=== PATIENT | female | born 1945 | race Caucasian/White ===

== ENCOUNTER 2017-11-08 10:13 | Inpatient (IN) | payer OTHER ==
[~2017-11-08] VITALS: Ht 167.6 cm; Wt 66.3 kg
[~2017-11-08 10:13] MED LIST: GABA300C10 PO; TRAM50TA2 PO
[2017-11-08 11:11] LABS: Basophils # (auto) 0.1 uL; Basophils % (auto) 1.1 % (0.0-2.0); Eosinophils # (auto) 0.1 uL; Eosinophils % (auto) 0.7 % (0.0-7.0); Hematocrit 43.6 % (36.0-46.0); Hemoglobin 14.6 g/dL (12.2-16.2); Lymphocytes # (auto) 1.8 uL; Lymphocytes % (auto) 13.5 % (10.0-50.0); Mean Corpuscular Hemoglobin 30.4 pg (28.0-32.0); Mean Corpuscular Hgb Conc. 33.5 g/dL (32.0-36.0); Mean Corpuscular Volume 90.9 fL (80.0-100.0); Monocytes # (auto) 0.7 uL; Neutrophils # (auto) 10.9 uL; Neutrophils % (auto) 79.7 % (37.0-80.0); Nucleated Red Blood Cells % 0.1 %; Platelet Count (auto) 298 10^3/uL (140-450); Red Blood Cells 4.79 10^6/uL (4.0-5.20); Red Cell Distribution Width 13.2 % (11.8-14.3); White Blood Cell 13.7 10^3/uL (4.4-10.8)
[2017-11-08] MEDS ORDERED: SODIUM CHLORIDE 0.9% 500 ML IVB ONE (11:11)
[2017-11-08] MEDS ORDERED: MORPHINE SULFATE 4 MG/ML SYR/VIAL IV ONE ×2 (11:15→13:30)
[2017-11-08] MEDS ORDERED: ONDANSETRON HCL 4 MG/2 ML VIAL IV ONE (11:15)
[2017-11-08 11:20] LABS: Urine Bacteria NONE SEEN /hpf (None Seen); Urine Blood Negative /uL (Negative); Urine Specific Gravity 1.003 (1.001-1.035); Urine WBC <1 /hpf (0 - 5)
[2017-11-08 11:28] LABS: Alanine Aminotransferase 30 U/L (13-56); Albumin 3.9 g/dL (3.4-5.0); Alkaline Phosphatase 77 U/L (45-117); Anion Gap 4 (5-15); Aspartate Aminotransferase 20 U/L (15-37); BUN/Creatinine Ratio 11.1; Bilirubin, Total 0.3 mg/dL (0.2-1.0); Blood Urea Nitrogen 9 mg/dL (7-18); Carbon Dioxide 28 mmol/L (21-32); Chloride 107 mmol/L (98-107); GFR African American 89 mL/min; GFR Non-African American 74 mL/min; Glucose 88 mg/dL (74-106); Potassium 4.3 mmol/L (3.5-5.1); Sodium 139 mmol/L (136-145); Total Protein 8.1 g/dL (6.4-8.2)
[2017-11-08] MEDS ORDERED: metroNIDAZOLE 500MG/100ML 100 ML IV ONE (13:30)
[2017-11-08 13:55] LABS: Magnesium 2.7 mg/dL (1.6-2.6)
[2017-11-08] MEDS: SODIUM CHLORIDE 0.9% 1,000 ML IV SCH (14:59)
[2017-11-08] MEDS ORDERED: HYDROcodone-ACET 5/325MG TAB PO PRN (15:00)
[2017-11-08] MEDS ORDERED: ONDANSETRON HCL 4 MG/2 ML VIAL IV PRN (15:00)
[2017-11-08] MEDS ORDERED: cefTRIAXone 1GM/10ml IVPUSH 10 ML IV ONE (15:00)
[2017-11-08] MEDS ORDERED: NITROGLYCERIN 0.4 MG SL TAB SL PRN (15:00)
[2017-11-08] MEDS ORDERED: MORPHINE SULFATE 4 MG/ML SYR/VIAL IV PRN ×2 (15:00)
[2017-11-08] MEDS ORDERED: LORazepam 0.5 MG TAB PO PRN (15:00)
[2017-11-08] MEDS: FAMOTIDINE 20 MG TAB PO SCH ×2 (15:11→22:17)
[2017-11-08] MEDS: ENOXAPARIN SOD 40 MG/0.4 ML SYRINGE SC SCH (15:22)
[2017-11-08] MEDS: metroNIDAZOLE 500MG/100ML 100 ML IV SCH (18:07)
[2017-11-08 18:22] VITALS: BP 131/77
[2017-11-08] MEDS ORDERED: COLE625T12 PO (18:42)
[2017-11-08] MEDS ORDERED: PANT40TA2 PO (18:42)
[2017-11-08] MEDS ORDERED: GABA800T97 PO (18:42)
[2017-11-08] MEDS ORDERED: SUMA100T15 PO (18:42)
[2017-11-08] MEDS ORDERED: ASPI81CH43 PO (18:42)
[2017-11-08] MEDS ORDERED: LEVO25TA6 PO (18:42)
[2017-11-08] MEDS ORDERED: ALPR0.254 PO (18:42)
[2017-11-08] MEDS ORDERED: HYDR12.56 PO (18:42)
[2017-11-08] MEDS ORDERED: SIMV-8 PO (18:42)
[2017-11-08] MEDS: traMADol HCL 50 MG TAB PO PRN (20:39)
[2017-11-08 22:00] VITALS: BP 130/81
[2017-11-08] MEDS ORDERED: PATIENTS OWN MEDICATION (Gabapentin 300 MG) PO SCH (22:00)
[2017-11-08] MEDS: GABAPENTIN 300 MG CAP PO SCH (22:17)
[2017-11-08] MEDS: TEMAZEPAM 15 MG CAP PO PRN (22:18)
[2017-11-09] MEDS: metroNIDAZOLE 500MG/100ML 100 ML IV SCH ×4 (00:02→18:00)
[2017-11-09] MEDS: SODIUM CHLORIDE 0.9% 1,000 ML IV SCH ×3 (01:08→22:01)
[2017-11-09] MEDS: ACETAMINOPHEN 500 MG TAB PO PRN ×2 (04:50→12:12)
[2017-11-09 05:00] VITALS: BP 126/43
[2017-11-09 05:56] LABS: Basophils # (auto) 0.1 uL; Eosinophils # (auto) 0.1 uL; Eosinophils % (auto) 1.4 % (0.0-7.0); Hematocrit 38.8 % (36.0-46.0); Lymphocytes # (auto) 1.4 uL; Lymphocytes % (auto) 16.9 % (10.0-50.0); Mean Corpuscular Hemoglobin 30.5 pg (28.0-32.0); Mean Corpuscular Hgb Conc. 33.4 g/dL (32.0-36.0); Mean Corpuscular Volume 91.2 fL (80.0-100.0); Monocytes # (auto) 0.6 uL; Monocytes % (auto) 7.1 % (0.0-12.0); Neutrophils # (auto) 6.2 uL; Neutrophils % (auto) 73.6 % (37.0-80.0); Platelet Count (auto) 210 10^3/uL (140-450); Red Blood Cells 4.26 10^6/uL (4.0-5.20); White Blood Cell 8.5 10^3/uL (4.4-10.8)
[2017-11-09] MEDS: GABAPENTIN 300 MG CAP PO SCH ×2 (09:11→22:01)
[2017-11-09] MEDS: ENOXAPARIN SOD 40 MG/0.4 ML SYRINGE SC SCH (09:11)
[2017-11-09] MEDS: cefTRIAXone 1GM/10ml IVPUSH 10 ML IV SCH (09:11)
[2017-11-09] MEDS: FAMOTIDINE 20 MG TAB PO SCH ×2 (09:11→22:01)
[2017-11-09] MEDS: traMADol HCL 50 MG TAB PO PRN (09:20)
[2017-11-09 09:29] VITALS: BP 124/75
[2017-11-09] MEDS ORDERED: LEVOFLOXACIN 500MG 100 ML IV ONE (12:45)
[2017-11-09] MEDS ORDERED: PROMETHAZINE HCL 25 MG/ML 1ML IV PRN (12:45)
[2017-11-09 12:48] VITALS: BP 128/68
[2017-11-09] MEDS: PROCHLORPERAZINE EDISYLATE 5 MG/ML 2ML VIAL IV PRN ×2 (15:01→20:19)
[2017-11-09 17:01] VITALS: BP 125/76
[2017-11-09 22:00] VITALS: BP 119/69
[2017-11-09] MEDS: TEMAZEPAM 15 MG CAP PO PRN (22:02)
[2017-11-10] MEDS: metroNIDAZOLE 500MG/100ML 100 ML IV SCH ×3 (00:53→11:52)
[2017-11-10 05:00] VITALS: BP 129/87
[2017-11-10] MEDS: SODIUM CHLORIDE 0.9% 1,000 ML IV SCH (06:32)
[2017-11-10 06:36] LABS: Basophils # (auto) 0 uL; Basophils % (auto) 0.4 % (0.0-2.0); Eosinophils # (auto) 0.1 uL; Eosinophils % (auto) 1.6 % (0.0-7.0); Hematocrit 41.1 % (36.0-46.0); Hemoglobin 13.9 g/dL (12.2-16.2); Lymphocytes # (auto) 0.9 uL; Lymphocytes % (auto) 12.9 % (10.0-50.0); Mean Corpuscular Hemoglobin 30.6 pg (28.0-32.0); Mean Corpuscular Hgb Conc. 33.7 g/dL (32.0-36.0); Mean Corpuscular Volume 90.8 fL (80.0-100.0); Monocytes # (auto) 0.3 uL; Monocytes % (auto) 5.2 % (0.0-12.0); Neutrophils # (auto) 5.3 uL; Neutrophils % (auto) 79.9 % (37.0-80.0); Nucleated Red Blood Cells % 0.1 %; Platelet Count (auto) 233 10^3/uL (140-450); Red Blood Cells 4.53 10^6/uL (4.0-5.20); Red Cell Distribution Width 12.9 % (11.8-14.3); White Blood Cell 6.7 10^3/uL (4.4-10.8)
[2017-11-10 06:57] LABS: BUN/Creatinine Ratio 7.9; Calcium 8.4 mg/dL (8.5-10.1); Magnesium 2.6 mg/dL (1.6-2.6); Potassium 3.9 mmol/L (3.5-5.1)
[2017-11-10] MEDS: cefTRIAXone 1GM/10ml IVPUSH 10 ML IV SCH (08:57)
[2017-11-10 09:00] VITALS: BP 140/81
[2017-11-10] MEDS: FAMOTIDINE 20 MG TAB PO SCH (09:25)
[2017-11-10] MEDS: GABAPENTIN 300 MG CAP PO SCH (09:25)
[2017-11-10] MEDS: ENOXAPARIN SOD 40 MG/0.4 ML SYRINGE SC SCH (09:25)
[2017-11-10] MEDS ORDERED: LEVOFLOXACIN 500MG 100 ML IV SCH (10:00)
[2017-11-10 13:24] VITALS: BP 136/85
== END 2017-11-10 15:00 | disposition home or self-care (01) | DRG 392 ==
LOC: ER 10:13 → TELE 10:14 → TELE-CENTR 17:36
PROVIDERS: ADMIT Internal Medicine; ATTEND Internal Medicine
DX: K57.92 Diverticulitis of intestine, part unspecified, without perforation or abscess without bleeding (principal); E78.5 Hyperlipidemia, unspecified; I10 Essential (primary) hypertension; K59.00 Constipation, unspecified; Z82.3 Family history of stroke; Z86.73 Personal history of transient ischemic attack (TIA), and cerebral infarction without residual deficits; Z90.49 Acquired absence of other specified parts of digestive tract; Z98.51 Tubal ligation status; Z79.82 Long term (current) use of aspirin; Z79.899 Other long term (current) drug therapy
CPT/HCPCS: 36415; 74176; 80048; 80053; 81001; 83690; 83735; 84484; 85025; 94761; 96361; 96374; 96375; 96376; J0696; J1956; J2405; J3490